=== PATIENT | female | born 2000 | race Native Hawaiian/Other Pacific Islander ===

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

== ENCOUNTER 2019-01-06 19:50 | Emergency (ER) | payer OTHER ==
[~2019-01-06] VITALS: Ht 167.6 cm; Wt 107.5 kg
[2019-01-06 21:45] VITALS: BP 120/62; TEMP 98
== END 2019-01-06 21:45 | disposition home or self-care (01) ==
LOC: ED 19:50
DX: J02.0 Streptococcal pharyngitis (principal); R11.2 Nausea with vomiting, unspecified
CPT/HCPCS: 87502; 87651; 96372; 99282; J2550

== ENCOUNTER 2019-07-13 00:30 | Emergency (ER) | payer OTHER ==
[~2019-07-13] VITALS: Ht 167.6 cm; Wt 108.9 kg
[2019-07-13 00:35] VITALS: TEMP 97.9
[2019-07-13 01:20] LABS: PLATELET COUNT 295 K/uL (152-353)
[2019-07-13 01:23] LABS: POTASSIUM 4.5 mmol/L (3.6-5.2)
[2019-07-13 03:40] VITALS: BP 113/58
== END 2019-07-13 03:47 | disposition home or self-care (01) ==
LOC: ED 00:30
PROVIDERS: Family Medicine
DX: N23 Unspecified renal colic (principal); N39.0 Urinary tract infection, site not specified; N20.0 Calculus of kidney
CPT/HCPCS: 80053; 81000; 81025; 85027; 87077; 87086; 87088; 87185; 87186; 96360; 96375; 99284; J1885

== ENCOUNTER 2019-07-16 09:35 | Outpatient (CLI) | payer OTHER | END 2019-07-16 20:11 | disposition home or self-care (01) | LOC: US 09:35 | DX: N20.2 Calculus of kidney with calculus of ureter (principal) ==

== ENCOUNTER 2019-07-18 10:03 | Outpatient (CLI) | payer OTHER ==
[2019-07-18 10:23] LABS: PLATELET COUNT 296 K/uL (152-353)
[2019-07-18 10:31] LABS: POTASSIUM 4.5 mmol/L (3.6-5.2)
== END 2019-07-18 20:34 | disposition home or self-care (01) ==
LOC: LABW 10:03 → US 10:03 → LABW 20:34
PROVIDERS: Nurse Practitioner Family
DX: N20.2 Calculus of kidney with calculus of ureter (principal); R10.31 Right lower quadrant pain; E86.0 Dehydration
CPT/HCPCS: 36415; 80053; 85027

== ENCOUNTER 2019-07-30 13:13 | Outpatient (CLI) | payer OTHER | END 2019-07-30 19:03 | disposition home or self-care (01) | LOC: RAD 13:13 | DX: M54.17 Radiculopathy, lumbosacral region (principal) ==

== ENCOUNTER 2019-09-19 13:36 | Outpatient (CLI) | payer OTHER | END 2019-09-19 20:19 | disposition home or self-care (01) | LOC: MRI 13:36 | DX: M54.5 Low back pain (principal); M53.3 Sacrococcygeal disorders, not elsewhere classified ==

== ENCOUNTER 2020-03-12 14:33 | Outpatient (CLI) | payer OTHER | END 2020-03-12 22:26 | disposition home or self-care (01) | LOC: LAB 14:33 | DX: U07.1 COVID-19 (principal) | CPT/HCPCS: 87635; G2023; U0002 ==

== ENCOUNTER 2022-12-01 12:34 | Outpatient (CLI) | payer OTHER ==
[2022-12-01 13:30] LABS: POTASSIUM 4.2 mmol/L (3.6-5.2)
== END 2022-12-01 22:28 | disposition home or self-care (01) ==
LOC: US 12:34
PROVIDERS: ATTEND Nurse Practitioner Primary Care
DX: R10.11 Right upper quadrant pain (principal)
CPT/HCPCS: 36415; 80053; 82150; 83690